=== PATIENT | male | born 1965 | race Asian ===

== ENCOUNTER 2017-10-02 11:43 | Emergency (ER) | payer BC ==
[2017-10-02] MEDS ORDERED: TYLENOL ONE (11:51)
[2017-10-02] MEDS ORDERED: TYLENOL PO ONE ×2 (11:52→13:25)
[2017-10-02] MEDS ORDERED: ZOFRAN IV ONE ×2 (12:30→13:25)
[2017-10-02] MEDS ORDERED: NACL 0.9% 1000 ML 1,000 ML IV ONE (12:30)
--- NOTE | 2017-10-02 12:34 | Emergency Department Report ---
Chief Complaint: Fever Stated Complaint: FLU SYMPTOMS - HPI History of Present Illness: 51-year-old male presents with 2 day history of flulike symptoms that include fever, chills, productive cough and body aches. He also has some nausea and vomiting. Today the patient got nauseous and went to vomit and passed out for a very short amount of time. Since then he has been awake and alert without any deficits. He has a past medical history of hypertension. He took some NyQuil HBP this morning around 5:30 AM. He has a primary care physician, Dr. Dsouza. He denies any chest pain, shortness of breath, vision change, slurred speech. He does have a slight headache when he gets nauseated. - ROS Review of Systems: Patient is positive for fever, nausea, vomiting, body aches, syncopal episode The patient is negative for chest pain, shortness of breath, vision change, slurred speech, abdominal pain, diarrhea - Exam Vital Signs: Vital Signs 10/02/17 11:47 Temperature 102.4 F H Pulse Rate 107 H Respiratory 18 Rate Blood Pressure 132/86 O2 Sat by Pulse 99 Oximetry Physical Exam: Patient is sitting comfortably and does not appear in any acute distress. Heart and lungs sounds are normal to auscultation. A productive cough heard during examination. Skin is hot but dry. No obvious focal neurological deficits. The patient is awake and alert. MSE screening note: Focused history and physical exam performed. Due to findings the following was ordered: I ordered a CBC, BMP, troponin, TSH, EKG and will place an IV for IV fluid and Zofran. ED Disposition for MSE Condition: Stable
[2017-10-02] MEDS ORDERED: TORADOL IV ONE (13:25)
[2017-10-02] MEDS ORDERED: TORADOL ONE (13:26)
[2017-10-02 13:32] LABS: Basophils % (Auto) 0.6 % (0.0-1.8); Hemoglobin 13.9 gm/dl (11.8-15.2); Lymphocytes # (Auto) 0.5 K/mm3 (1.2-5.4); Lymphocytes % (Auto) 10.9 % (13.4-35.0); Mean Corpuscular HGB Conc 32 % (32-34); Mean Corpuscular Hemoglobin 28 pg (28-32); Mean Corpuscular Volume 86 fl (84-94); Monocytes # (Auto) 0.6 K/mm3 (0.0-0.8); Monocytes % (Auto) 12.6 % (0.0-7.3); Platelet Count 160 K/mm3 (140-440); Red Blood Count 5.03 M/mm3 (3.65-5.03); Red Cell Distribution Width 13.6 % (13.2-15.2)
[2017-10-02 13:49] LABS: BUN/Creatinine Ratio 8; Blood Urea Nitrogen 7 mg/dL (9-20); Calcium 8.1 mg/dL (8.4-10.2); Hemolysis Index 6
--- NOTE | 2017-10-02 15:09 | Emergency Department Report ---
- General Chief Complaint: Fever Stated Complaint: FLU SYMPTOMS Time Seen by Provider: 10/02/17 12:42 Source: patient Mode of arrival: Ambulatory Limitations: No Limitations - History of Present Illness Initial Comments: 51-year-old male past medical history hypertension presents with complaint of 2- 3 days of cough and some malaise and sore throat. Patient has been taking DayQuil and NyQuil for his symptoms. States that earlier today while at home he had a coughing fit and became lightheaded and may have briefly lost consciousness. Patient denies chest pain palpitations shortness of breath. States he had some nausea yesterday and earlier today but does not feel nauseous at this moment. Patient is awake alert and oriented 3 not in acute distress and nontoxic appearing. Accompanied by at bedside. Denies alcohol or drug use. 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 MD Complaint: fever, cough, rhinorrhea Onset/Timin -: days(s) Severity: mild Severity scale (0 -10): 5 Consistency: constant Improves With: nothing Worsens With: nothing Context: sick contacts Associated Symptoms: denies other symptoms, fever, chills, cough Treatments Prior to Arrival: none - Related Data Previous Rx's Medication Instructions Recorded Last Taken Type Dextromethorphan/Benzocaine 1 each PO Q4H PRN #1 box 10/02/17 Unknown Rx [Cepacol Sorethroat-Cough Elaine] Ibuprofen [Motrin] 800 mg PO Q8HR PRN #30 tablet 10/02/17 Unknown Rx Ondansetron [Zofran Odt] 4 mg PO Q8HR PRN #12 tab.rapdis 10/02/17 Unknown Rx Oseltamivir [Tamiflu] 75 mg PO BID #10 cap 10/02/17 Unknown Rx Allergies Allergy/AdvReac Type Severity Reaction Status Date / Time Penicillins AdvReac Dizziness Verified 10/02/17 11:51 ED Review of Systems ROS: Stated complaint: FLU SYMPTOMS Other details as noted in HPI Constitutional: malaise. denies: chills, fever Eyes: denies: eye pain, eye discharge, vision change ENT: denies: ear pain, throat pain Respiratory: cough. denies: shortness of breath, wheezing Cardiovascular: denies: chest pain, palpitations Endocrine: no symptoms reported Gastrointestinal: denies: abdominal pain, nausea, diarrhea Genitourinary: denies: urgency, dysuria Musculoskeletal: denies: back pain, joint swelling, arthralgia Skin: denies: rash, lesions Neurological: denies: headache, weakness, paresthesias Psychiatric: denies: anxiety, depression Hematological/Lymphatic: denies: easy bleeding, easy bruising ED Past Medical Hx - Past Medical History Hx Hypertension: Yes - Surgical History Past Surgical History?: No - Medications Home Medications: Home Medications Medication Instructions Recorded Confirmed Last Taken Type Dextromethorphan/Benzocaine 1 each PO Q4H PRN #1 box 10/02/17 Unknown Rx [Cepacol Sorethroat-Cough Elaine] Ibuprofen [Motrin] 800 mg PO Q8HR PRN #30 tablet 10/02/17 Unknown Rx Ondansetron [Zofran Odt] 4 mg PO Q8HR PRN #12 tab.rapdis 10/02/17 Unknown Rx Oseltamivir [Tamiflu] 75 mg PO BID #10 cap 10/02/17 Unknown Rx ED Physical Exam - General Limitations: No Limitations General appearance: alert, in no apparent distress - Head Head exam: Present: atraumatic, normocephalic - Eye Eye exam: Present: normal appearance, PERRL, EOMI - ENT ENT exam: Present: mucous membranes moist - Neck Neck exam: Present: normal inspection - Respiratory Respiratory exam: Present: normal lung sounds bilaterally. Absent: respiratory distress - Cardiovascular Cardiovascular Exam: Present: regular rate, normal rhythm. Absent: systolic murmur, diastolic murmur, rubs, gallop - GI/Abdominal GI/Abdominal exam: Present: soft, normal bowel sounds - Rectal Rectal exam: Present: deferred - Extremities Exam Extremities exam: Present: normal inspection - Back Exam Back exam: Present: normal inspection - Neurological Exam Neurological exam: Present: alert, oriented X3 - Psychiatric Psychiatric exam: Present: normal affect, normal mood - Skin Skin exam: Present: warm, dry, intact, normal color. Absent: rash ED Course Vital Signs 10/02/17 10/02/17 11:47 15:25 Temperature 102.4 F H 100 F H Pulse Rate 107 H 89 Respiratory 18 18 Rate Blood Pressure 132/86 Blood Pressure 108/70 [Right] O2 Sat by Pulse 99 100 Oximetry ED Medical Decision Making - Lab Data Result diagrams: 10/02/17 13:09 02/04/18 13:09 - Medical Decision Making A/P: Viral syndrome, vasovagal episode 1-case discussed with Dr. Morgan before discharge 2-I offered patient Tamiflu as patient does have flulike symptoms and this is a severe flu season. Patient elects to take Tamiflu at this time. I discussed side effects of Tamiflu and risks and benefits of taking Tamiflu with the patient before he made his decision. This was witnessed by his at bedside. 3-Zofran when necessary, Motrin when necessary, throat lozenges when necessary, Tessalon Perles 4-follow-up with primary care doctor , patient states he will follow-up with his primary care doctor tomorrow. Advised patient to return to the ED for any chest pain shortness of breath persistent nausea and vomiting and inability to tolerate by mouth fevers above 100.4 Fahrenheit despite Tylenol or Motrin use or any increased lethargy. 5- EKG unremarkable, troponin negative. HEART Score 1 points Low Score (0-3 points) Risk of MACE of 0.9-1.7%. [email or web address] Critical care attestation.: If time is entered above; I have spent that time in minutes in the direct care of this critically ill patient, excluding procedure time. ED Disposition Clinical Impression: Viral syndrome Disposition: DC-01 TO HOME OR SELFCARE Is pt being admited?: No Does the pt Need Aspirin: No Condition: Stable Instructions: Viral Syndrome (ED), Syncope (ED) Prescriptions: Dextromethorphan/Benzocaine [Cepacol Sorethroat-Cough Elaine] 1 each PO Q4H PRN #1 box PRN Reason: Sore Throat Ibuprofen [Motrin] 800 mg PO Q8HR PRN #30 tablet PRN Reason: Fever Ondansetron [Zofran Odt] 4 mg PO Q8HR PRN #12 tab.rapdis PRN Reason: Nausea Oseltamivir [Tamiflu] 75 mg PO BID #10 cap Referrals: KINGSLEY TRAN MD [Staff Physician] - 3-5 Days [facility] [Outside] - 3-5 Days Forms: Accompanied Note, Work/School Release Form(ED) Time of Disposition: 16:16
[2017-10-02 15:39] VITALS: BP 108/70
== END 2017-10-02 16:37 | disposition home or self-care (01) ==
LOC: ED 11:43
DX: B34.9 Viral infection, unspecified (principal); I10 Essential (primary) hypertension; Z88.0 Allergy status to penicillin
CPT/HCPCS: 36415; 80048; 84443; 84484; 85025; 93005; 93010; 96361; 96374; 96375; 96376; 99283; J1885; J2405; J7030

== ENCOUNTER 2022-03-31 07:59 | Emergency (ER) | payer BC ==
--- NOTE | 2022-03-31 08:16 | Emergency Department Report ---
ED Abdominal Pain HPI - General Chief Complaint: Abdominal Pain Stated Complaint: LOWER ABD CRAMPS PUI?: No Time Seen by Provider: 03/31/22 08:15 Source: patient Mode of arrival: Ambulatory Limitations: No Limitations - History of Present Illness Initial Comments: 50 yo comes to ER with suprapubic pain. No dysuria. No discharge. He has seen his pcp for pain and had a CT chest/abd/pelvis- he has the report- all are normal. His pcp also did blood work that was normal per pt. No fever or chills no back pain no fever or chills ambulatory and non ill appearing Had colonoscopy 10 y ago- No bloody stools/diarrhea MD Complaint: other Improves With: nothing Worsens With: nothing Associated Symptoms: denies other symptoms. denies: nausea, vomiting, diarrhea, fever, chills, constipation, dysuria, hematemesis, hematochezia, melena, hematuria, anorexia, syncope - Related Data Previous Rx's Medication Instructions Recorded Last Taken Type Dextromethorphan/Benzocaine 1 each PO Q4H PRN #1 box 10/02/17 Unknown Rx [Cepacol Sorethroat-Cough Elaine] Ibuprofen [Motrin] 800 mg PO Q8HR PRN #30 tablet 10/02/17 Unknown Rx Ondansetron [Zofran Odt] 4 mg PO Q8HR PRN #12 tab.rapdis 10/02/17 Unknown Rx Oseltamivir [Tamiflu] 75 mg PO BID #10 cap 10/02/17 Unknown Rx Allergies Allergy/AdvReac Type Severity Reaction Status Date / Time Penicillins AdvReac Dizziness Verified 03/31/22 08:14 ED Review of Systems ROS: Stated complaint: LOWER ABD CRAMPS Other details as noted in HPI Comment: All other systems reviewed and negative ED Past Medical Hx - Past Medical History Previous Medical History?: Yes Hx Hypertension: Yes - Surgical History Past Surgical History?: No - Family History Family history: no significant - Social History Smoking Status: Never Smoker Substance Use Type: None - Medications Home Medications: Home Medications Medication Instructions Recorded Confirmed Last Taken Type Dextromethorphan/Benzocaine 1 each PO Q4H PRN #1 box 10/02/17 Unknown Rx [Cepacol Sorethroat-Cough Elaine] Ibuprofen [Motrin] 800 mg PO Q8HR PRN #30 tablet 10/02/17 Unknown Rx Ondansetron [Zofran Odt] 4 mg PO Q8HR PRN #12 tab.rapdis 10/02/17 Unknown Rx Oseltamivir [Tamiflu] 75 mg PO BID #10 cap 10/02/17 Unknown Rx ED Physical Exam - General Limitations: No Limitations General appearance: alert, in no apparent distress - Head Head exam: Present: atraumatic, normocephalic - Eye Eye exam: Present: normal appearance - ENT ENT exam: Present: mucous membranes moist - Neck Neck exam: Present: normal inspection - Respiratory Respiratory exam: Present: normal lung sounds bilaterally. Absent: respiratory distress - Cardiovascular Cardiovascular Exam: Present: regular rate, normal rhythm. Absent: systolic murmur, diastolic murmur, rubs, gallop - GI/Abdominal GI/Abdominal exam: Present: soft, normal bowel sounds - Rectal Rectal exam: Present: deferred - Extremities Exam Extremities exam: Present: normal inspection - Back Exam Back exam: Present: normal inspection - Neurological Exam Neurological exam: Present: alert, oriented X3 - Psychiatric Psychiatric exam: Present: normal affect, normal mood - Skin Skin exam: Present: warm, dry, intact, normal color. Absent: rash ED Course Vital Signs 03/31/22 08:13 Temperature 99.0 F Pulse Rate 101 H Respiratory 16 Rate Blood Pressure 122/83 O2 Sat by Pulse 99 Oximetry ED Medical Decision Making - Medical Decision Making Lab Results 03/31/22 Range/Units Unknown Urine Color Straw (Yellow) Urine Turbidity Slightly cloudy (Clear) Urine pH 6.0 (5.0-7.0) Ur Specific [place] 1.010 (1.003-1.030) Urine Protein 30 mg/dl (Negative) mg/dL Urine Glucose (UA) Negative (Negative) mg/dL Urine Ketones Negative (Negative) mg/dL Urine Blood Small A (Negative) Urine Nitrite Negative (Negative) Ur Reducing Substances Not Reportable Urine Bilirubin Negative (Negative) Urine Ictotest Not Reportable Urine Urobilinogen < 2.0 (<2.0) mg/dL Ur Leukocyte Esterase Negative (Negative) Urine WBC (Auto) 1.0 (0.0-6.0) /HPF Urine RBC (Auto) 3.0 (0.0-6.0) /HPF Urine Mucus Few /HPF Vital Signs 03/31/22 08:13 Temperature 99.0 F Pulse Rate 101 H Respiratory 16 Rate Blood Pressure 122/83 O2 Sat by Pulse 99 Oximetry Patient has a recent CT report in hand that he shares. The CT is of chest abdomen and pelvis. It is normal. UA noted with some hematuria. There is no leukocytes or nitrates. Pt being dc home with dc plan of care. He verbalizes understanding of plan of care including diet, meds, activity and follow up. - Differential Diagnosis ro uti/k stone Critical care attestation.: If time is entered above; I have spent that time in minutes in the direct care of this critically ill patient, excluding procedure time. ED Disposition Clinical Impression: Hematuria Qualifiers: Hematuria type: unspecified type Qualified Code(s): R31.9 - Hematuria, unspecified Disposition: 01 HOME / SELF CARE / HOMELESS Is pt being admited?: No Does the pt Need Aspirin: No Condition: Stable Instructions: Hematuria, Adult Additional Instructions: follow up with urology referral below motrin or tylenol for pain drink a lot of water avoid caffeine Referrals: BREANA FISHER MD [Staff Physician] - 3-5 Days PORTILLO MCKEON MD [Staff Physician] - 3-5 Days KRYSTAL BASURTO MD [Staff Physician] - 3-5 Days Forms: Work/School Release Form(ED) Time of Disposition: 09:48
[2022-03-31 08:21] VITALS: BP 122/83
[2022-03-31 09:21] LABS: Mucus,Urine FEW /HPF
[2022-03-31 09:27] LABS: Color,Urine Straw (Yellow)
[2022-03-31 09:30] LABS: Bilirubin,Urine Negative (Negative); Blood,Urine Small (Negative)
[2022-03-31 09:31] LABS: Urobilinogen,Urine < 2.0 mg/dL (<2.0)
== END 2022-03-31 14:42 | disposition home or self-care (01) ==
LOC: ED 07:59
DX: R31.9 Hematuria, unspecified (principal); R10.30 Lower abdominal pain, unspecified; I10 Essential (primary) hypertension; Z88.0 Allergy status to penicillin; Z79.899 Other long term (current) drug therapy
CPT/HCPCS: 81001; 99283